=== PATIENT | male | born 1960 | race Caucasian/White ===

== ENCOUNTER 2019-07-13 05:05 | Emergency (ER) | payer BC ==
[2019-07-13 06:04] LABS: Absolute Lymphocytes (CBC) 4.8 K/uL (0.7-4.9); Basophils % 1.2 % (0-1.3); Hematocrit 45.1 % (39.6-49.0); Lymphocytes % 41.9 % (15.3-44.8); MPV 8.5 fL (7.6-11.3); RBC Red Blood Cell Count 5.47 M/uL (4.33-5.43)
[2019-07-13 06:07] LABS: BUN Blood Urea Nitrogen 16 mg/dL (7-18); Bicarbonate 31 mmol/L (21-32); Glucose Level 112 mg/dL (74-106); Potassium 3.7 mmol/L (3.5-5.1); Protime INR 1.01; Sodium Level 136 mmol/L (136-145)
--- NOTE | 2019-07-13 06:16 | EDPHYS ---
Physician Documentation [facility] Name: Michael Mccray Age: 58 yrs Sex: Male : 1960 Arrival Date: 07/13/2019 Time: 05:08 Bed 6 Private MD: ED Physician Raciel Villalta HPI: 07/13 05:16 This 58 yrs old Male presents to ER via Unassigned with complaints of Facial rn Droop. 05:16 The patient presents to the emergency department with weakness of the left side of the rn face, that is moderate. Onset: The symptoms/episode began/occurred yesterday. Severity of symptoms: At their worst the symptoms were moderate in the emergency department the symptoms are unchanged. The patient has not experienced similar symptoms in the past. Reports noticed face felt funny yesterday around 2PM, went to work and noticed liquid coming out of left side of mouth and left side of face was drooping. NO trauma. No other focal neurological complaints. . Historical: - Allergies: 05:22 PENICILLINS; bb 05:22 Erythromycin; bb - Immunization history:: Adult Immunizations up to date. - Social history:: Smoking status: Patient uses tobacco products, vapes. - Family history:: not pertinent. - Ebola Screening: : No symptoms or risks identified at this time. - Hospitalizations: : No recent hospitalization is reported. ROS: 05:16 Constitutional: Negative for fever, chills, and weight loss, Eyes: Negative for injury, rn pain, redness, and discharge, Neck: Negative for injury, pain, and swelling, Cardiovascular: Negative for chest pain, palpitations, and edema, Respiratory: Negative for shortness of breath, cough, wheezing, and pleuritic chest pain, Abdomen/GI: Negative for abdominal pain, nausea, vomiting, diarrhea, and constipation, MS/Extremity: Negative for injury and deformity, Skin: Negative for injury, rash, and discoloration, Neuro: Negative for headache, numbness, tingling, and seizure. Exam: 05:16 Constitutional: This is a well developed, well nourished patient who is awake, alert, rn and in no acute distress. Head/Face: Normocephalic, atraumatic. Eyes: Pupils equal round and reactive to light, extra-ocular motions intact. ENT: Mucous membranes moist. Neck: Trachea midline, no thyromegaly or masses palpated, and no cervical lymphadenopathy. Supple, full range of motion without nuchal rigidity, or vertebral point tenderness. No Meningismus. Cardiovascular: Regular rate and rhythm. No pulse deficits. Respiratory: Lungs have equal breath sounds bilaterally, clear to auscultation. No increased work of breathing, no retractions or nasal flaring. Abdomen/GI: Soft, non-tender MS/ Extremity: Pulses equal, no cyanosis. Neurovascular intact. Full, normal range of motion. Equal circumference. Neuro: Awake and alert, GCS 15, oriented to person, place, time, and situation. Motor strength 5/5 in all extremities. Sensory grossly intact. Cerebellar exam normal. + moderate left upper and lower facial weakness. Vital Signs: 05:22 BP 149 / 95; Pulse 82; Resp 16 S; Pulse Ox 98% on R/A; Weight 135.62 kg (R); Height 5 bb ft. 10 in. (177.80 cm) (R); Pain 0/10; 05:22 Temp 98.1; rr5 06:00 BP 124 / 74; Pulse 80; Resp 18; Pulse Ox 98% ; rr5 06:30 BP 124 / 77; Pulse 66; Resp 16; Temp 98; Pulse Ox 98% ; Pain 0/10; rr5 05:22 Body Mass Index 42.90 (135.62 kg, 177.80 cm) bb NIH Stroke Scale Scores: 05:05 NIHSS Score: 1 rr5 MDM: 05:10 Patient medically screened. rn 05:41 Data reviewed: vital signs, nurses notes, radiologic studies, CT scan. Counseling: I rn had a detailed discussion with the patient and/or guardian regarding: the historical points, exam findings, and any diagnostic results supporting the discharge/admit diagnosis, radiology results, the need for outpatient follow up, to return to the emergency department if symptoms worsen or persist or if there are any questions or concerns that arise at home. Special discussion: I discussed with the patient/guardian in detail that at this point there is no indication for admission to the hospital. It is understood, however, that if the symptoms persist or worsen the patient needs to return immediately for re-evaluation. Based on the history and exam findings, there is no indication for further emergent testing or inpatient evaluation. I discussed with the patient/guardian the need to see the neurologist for further evaluation of the symptoms. I discussed with the patient/guardian the need to see the primary care provider for further evaluation of the symptoms. ED course: Symptoms and exam consistent with bells palsy, will dc home with steroids and antivirals and pcp and neuro f/u. CT head negative. Explained to patient need for eye drops and protecting eye when sleeping. . 06:14 ED course: No indication for TPA given consistent with bells palsy, neg ct head, and rn symptoms had begun yesterday afternoon.. 07/13 05:16 Order name: Basic Metabolic Panel; Complete Time: 06:14 rn 07/13 05:16 Order name: CBC with Diff; Complete Time: 06: rn 07/13 05:16 Order name: Protime (+inr); Complete Time: 06: rn 07/13 05:16 Order name: Ptt, Activated; Complete Time: 06: rn 07/13 05:16 Order name: CT Stroke Brain w/o Contrast rn 07/13 05:16 Order name: EKG; Complete Time: 05: rn 07/13 05:16 Order name: Accucheck; Complete Time: rn 07/13 05:16 Order name: Cardiac monitoring; Complete Time: rn 07/13 05:16 Order name: EKG - Nurse/Tech; Complete Time: rn 07/13 05:16 Order name: IV Saline Lock; Complete Time: rn 07/13 05:16 Order name: Labs collected and sent; Complete Time: 05: rn 07/13 05:16 Order name: NPO; Complete Time: 07/13 05:16 Order name: O2 Per Protocol; Complete Time: 07/13 05:16 Order name: O2 Sat Monitoring; Complete Time: : rn 07/13 05:16 Order name: Stroke Swallow Screen; Complete Time: 05: rn Administered Medications: No medications were administered Point of Care Testing: Blood Glucose: 05:22 Blood Glucose: 108 mg/dL; bb Ranges: Critical Glucose Levels:Adult <50 mg/dl or >400 mg/dl <40 mg/dl or >180 mg/dl Disposition: 07/13/19 06:15 Discharged to Home. Impression: Sidhu's palsy. - Condition is Stable. - Discharge Instructions: Sidhu Palsy, Adult. - Prescriptions for valacyclovir 500 mg Oral tablet - take 1 tablet by ORAL route 2 times per day for 5 days; 10 tablet. Prednisone 20 mg Oral Tablet - take 1 tablet by ORAL route as instructed for 10 days Take 3 tablets orally once daily for 5 days, then take 2 tablets orally once daily for 3 days, then take 1 tablet orally once daily for 2 days, total of 10 days.; 23 tablet. - Medication Reconciliation Form, Thank You Letter, Antibiotic Education, Prescription Opioid Use form. - Follow up: Clement Smith; When: 5 - 6 days; Reason: Recheck today's complaints, Re-evaluation by your physician. - Problem is new. - Symptoms are unchanged. NIH Stroke Scale - NIH Stroke Score Date: 07/13/2019 Time: 05:05 Total Score = 1 1a. Level of Consciousness (LOC) - 0(Alert) 1b. Level of Consciousness (LOC) (Year \T\ Age) - 0(Both) 1c. LOC Commands (Open \T\ Closes Eyes/Global Chief Creative Officer) - 0(Both) 2. Best Gaze (Lateral Gaze Paresis) - 0(Normal) 3. Visual Field Loss - 0(No visual loss) 4. Facial Palsy - 1(Minor Paralysis) 5a. Left Arm: Motor (10-second hold) - 0(No drift) 5b. Right Arm: Motor (10-second hold) - 0(No drift) 6a. Left Leg: Motor (5-second hold - always test supine) - 0(No drift) 6b. Right Leg: Motor (5-second hold - always test supine) - 0(No drift) 7. Limb Ataxia (finger/nose \T\ heel/ayers - test with eyes open) - 0(Absent) 8. Sensory Loss (pinprick arms/legs/face) - 0(Normal) 9. Best Language: Aphasia (description/naming/reading) - 0(No aphasia) 10. Dysarthria (speech clarity - read or repeat words) - 0(Normal) 11. Extinction and Inattention (visual/tactile/auditory/spatial/personal) - 0(No abnormality) Initials: rr5 Signatures: Dispatcher [employer] Jessica Fontenot RN RN Raciel Segura MD MD rn Roque, Raymond, RN RN rr5 Corrections: (The following items were deleted from the chart) 06:38 06:15 07/13/2019 06:15 Discharged to Home. Impression: Sidhu's palsy. Condition rr5 is Stable. Discharge Instructions: Sidhu Palsy, Adult. Prescriptions for valacyclovir 500 mg Oral tablet - take 1 tablet by ORAL route 2 times per day for 5 days; 10 tablet, Prednisone 20 mg Oral Tablet - take 1 tablet by ORAL route as instructed for 10 days Take 3 tablets orally once daily for 5 days, then take 2 tablets orally once daily for 3 days, then take 1 tablet orally once daily for 2 days, total of 10 days.; 23 tablet. and Forms are Medication Reconciliation Form, Thank You Letter, Antibiotic Education, Prescription Opioid Use. Follow up: Clement Smith; When: 5 - 6 days; Reason: Recheck today's complaints, Re-evaluation by your physician. Problem is new. Symptoms are unchanged. rn
--- NOTE | 2019-07-13 06:16 | ER ---
Nurse's Notes [facility] Name: Michael Mccray Age: 58 yrs Sex: Male : 1960 Arrival Date: 07/13/2019 Time: 05:08 Bed 6 Private MD: Diagnosis: Sidhu's palsy Presentation: 07/13 05:10 Presenting complaint: Patient states: he was told by his coworkers yesterday that he bb had a left sided facial droop pt denies any other complaints. Transition of care: patient was not received from another setting of care. An acute neurological deficit is present. The charge nurse has been notified. The patient has been moved to a treatment area. Onset of symptoms was July 12, 2019. Risk Assessment: Do you want to hurt yourself or someone else? Patient reports no desire to harm self or others. Initial Sepsis Screen: Does the patient meet any 2 criteria? No. Patient's initial sepsis screen is negative. Does the patient have a suspected source of infection? No. Patient's initial sepsis screen is negative. Care prior to arrival: None. 05:10 Method Of Arrival: Ambulatory bb 05:10 Acuity: EDUARDO 2 bb 05:10 Onset of symptoms was July 12, 2019 at 14:00. rr5 05:10 An acute neurological deficit is present. The charge nurse has been notified. The rr5 patient has been moved to a treatment area. Pre-hospital glucose is not applicable to this patient. Triage Assessment: 05:22 The onset of the patients symptoms was July 12, 2019 at 14:00. bb Stroke Activation: Symptom onset > 6 hours Physician: Stroke Attending; Name: ; Notified At: ; Arrived At: Physician: Chief Stroke Resident; Name: ; Notified At: ; Arrived At: Physician: Stroke Resident; Name: ; Notified At: ; Arrived At: Physician: ED Attending; Name: Ambar; Notified At: 05:16; Arrived At: 05:16 Physician: ED Resident; Name: ; Notified At: ; Arrived At: Historical: - Allergies: 05:22 PENICILLINS; bb 05:22 Erythromycin; bb - Immunization history:: Adult Immunizations up to date. - Social history:: Smoking status: Patient uses tobacco products, vapes. - Family history:: not pertinent. - Ebola Screening: : No symptoms or risks identified at this time. - Hospitalizations: : No recent hospitalization is reported. Screenin:10 Abuse screen: Denies threats or abuse. Denies injuries from another. Nutritional rr5 screening: No deficits noted. Tuberculosis screening: No symptoms or risk factors identified. Fall Risk IV access (20 points). Total Verma Fall Scale indicates No Risk (0-24 pts). 05:10 VAN Screening: Arm Drift: Patient shows no arm weakness. Patient is VAN negative. rr5 05:39 Patient has been NPO before screening. The patient is alert, able to follow commands. rr5 The patient does not exhibit slurred or garbled speech The patient is not exhibiting difficulty speaking. The patient does not exhibit difficulty understanding words. The patient is able to swallow own secretions with no drooling or need for suction. Patient tolerated one teaspoon of water. No drooling, immediate coughing, gurgling, or clearing of the throat was noted. The patient tolerated 90mL of water. No drooling, immediate coughing, gurgling, or clearing of the throat was noted. The patient passed the bedside swallow screening. Oral medications may be given as ordered. Contact Physician for further diet orders. Provider notified of bedside swallow screening results: Raciel Villalta MD. Assessment: 05:05 General: Appears in no apparent distress. comfortable, Behavior is calm, cooperative, rr5 appropriate for age. 05:05 Pain: Denies pain. 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 Full function Gait is steady, Facial droop on left, Pupils are PERRLA, Intact Reports facial droop. Cardiovascular: Capillary refill < 3 seconds Patient's skin is warm and dry. Respiratory: Airway is patent Respiratory effort is even, unlabored, Respiratory pattern is regular, symmetrical. GI: No signs and/or symptoms were reported involving the gastrointestinal system. : No signs and/or symptoms were reported regarding the genitourinary system. EENT: left facial droop. Reports left facial droop started 1400 (07/12/19). Derm: Skin is intact, Skin temperature is warm. Musculoskeletal: Circulation, motion, and sensation intact. Capillary refill < 3 seconds. 05:05 T-PA (Activase) Screening: Contraindications: Other: out of window symptoms started rr5 07/12/19 \T\ 1400H. 05:10 VAN Scoring: Arm Drift: Patients demonstrates NO arm weakness. Patient is VAN Negative. rr5 05:39 Patient has been NPO before screening. The patient is alert, and able to follow rr5 commands. The patient does not exhibit slurred or garbled speech. The patient is not exhibiting difficulty speaking. The patient does not exhibit difficulty understanding words. The patient is able to swallow own secretions with no drooling or need for suction. Patient tolerated one teaspoon of water. No drooling, immediate coughing, gurgling, or clearing of the throat was noted. The patient tolerated 90mL of water. No drooling, immediate coughing, gurgling, or clearing of the throat was noted. The patient passed the bedside swallow screening. Oral medications may be given as ordered. Contact Physician for further diet orders. Provider notified of bedside swallow screening results: Raciel Villalta MD. 06:00 Reassessment: Patient appears in no apparent distress at this time. Patient and/or rr5 family updated on plan of care and expected duration. Pain level reassessed. Patient is alert, oriented x 3, equal unlabored respirations, skin warm/dry/pink. no complaints made. watching TV comfortably. 06:34 Reassessment: Patient appears in no apparent distress at this time. Patient is alert, rr5 oriented x 3, equal unlabored respirations, skin warm/dry/pink. discharge instruction given and explained without complaints made,verbalized understanding. Patient states feeling better. Vital Signs: 05:22 BP 149 / 95; Pulse 82; Resp 16 S; Pulse Ox 98% on R/A; Weight 135.62 kg (R); Height 5 bb ft. 10 in. (177.80 cm) (R); Pain 0/10; 05:22 Temp 98.1; rr5 06:00 BP 124 / 74; Pulse 80; Resp 18; Pulse Ox 98% ; rr5 06:30 BP 124 / 77; Pulse 66; Resp 16; Temp 98; Pulse Ox 98% ; Pain 0/10; rr5 05:22 Body Mass Index 42.90 (135.62 kg, 177.80 cm) bb NIH Stroke Scale Scores: 05:05 NIHSS Score: 1 rr5 ED Course: 05:00 Patient has correct armband on for positive identification. Placed in gown. Bed in low rr5 position. Call light in reach. Side rails up X2. contractor buyer on. Pulse ox on. NIBP on. 05:08 Patient arrived in ED. ds1 05:10 Raciel Villalta MD is Attending Physician. rn 05:16 Arm band placed on Patient placed in an exam room, on a stretcher, on pulse oximetry. bb 05:22 Triage completed. bb 05:30 Inserted saline lock: 20 gauge in right antecubital area, using aseptic technique. rr5 Blood collected. 05:30 Patient maintains SpO2 saturation greater than 95% on room air. rr5 05:31 CT Stroke Brain w/o Contrast In Process Unspecified. EDMS 05:37 Jean-Paul Livingston, MEHRAN is Primary Nurse. rr5 06:15 Clement Smith MD is Referral Physician. rn 06:35 No provider procedures requiring assistance completed. IV discontinued, intact, rr5 bleeding controlled, No redness/swelling at site. Pressure dressing applied. Administered Medications: No medications were administered Point of Care Testing: Blood Glucose: 05:22 Blood Glucose: 108 mg/dL; bb Ranges: Outcome: 06:15 Discharge ordered by . rn 06:35 Discharged to home ambulatory. rr5 06:35 Condition: stable 06:35 Discharge instructions given to patient, Instructed on discharge instructions, follow up and referral plans. medication usage, Demonstrated understanding of instructions, follow-up care, medications, Prescriptions given X 2. 06:38 Patient left the ED. rr5 NIH Stroke Scale - NIH Stroke Score Date: 07/13/2019 Time: 05:05 Total Score = 1 1a. Level of Consciousness (LOC) - 0(Alert) 1b. Level of Consciousness (LOC) (Year \T\ Age) - 0(Both) 1c. LOC Commands (Open \T\ Closes Eyes/Grading Clerk) - 0(Both) 2. Best Gaze (Lateral Gaze Paresis) - 0(Normal) 3. Visual Field Loss - 0(No visual loss) 4. Facial Palsy - 1(Minor Paralysis) 5a. Left Arm: Motor (10-second hold) - 0(No drift) 5b. Right Arm: Motor (10-second hold) - 0(No drift) 6a. Left Leg: Motor (5-second hold - always test supine) - 0(No drift) 6b. Right Leg: Motor (5-second hold - always test supine) - 0(No drift) 7. Limb Ataxia (finger/nose \T\ heel/ayers - test with eyes open) - 0(Absent) 8. Sensory Loss (pinprick arms/legs/face) - 0(Normal) 9. Best Language: Aphasia (description/naming/reading) - 0(No aphasia) 10. Dysarthria (speech clarity - read or repeat words) - 0(Normal) 11. Extinction and Inattention (visual/tactile/auditory/spatial/personal) - 0(No abnormality) Initials: rr5 Signatures: Dispatcher [employer] [facility] CatAnupama jiménez ds1 Jessica Luis RN RN Raciel Segura MD MD rn Roque, Raymond, RN RN rr5 Corrections: (The following items were deleted from the chart) 05:41 05:05 VAN Scoring: Arm Drift: Patients demonstrates NO arm weakness. Patient is rr5 VAN Negative. rr5
[2019-07-13 06:44] VITALS: O2SAT 98
[2019-07-13 06:47] VITALS: BP 124/77; TEMP 98
--- NOTE | 2019-07-13 08:27 | EKG ---
Test Date: 2019-07-13 Test Time: 05:34:24 Hvac Maintenance Technician: RR MEASUREMENT RESULTS: Intervals: Rate: 70 LA: 168 QRSD: 108 QT: 426 QTc: 460 Protem: P: 69 LA: 168 QRS: 24 T: 36 INTERPRETIVE STATEMENTS: Normal sinus rhythm Normal ECG Compared to ECG 07/31/1997 21:54:00 No significant changes Electronically Signed On 07-13-19 08:26:42 CDT by Yung Mcmahon
--- NOTE | 2019-07-13 09:52 | RAD REPORT ---
EXAM DESCRIPTION: CT - Ct Stroke Brain Wo Cont - 07/13/2019 5:43 am ADDENDUM #1 THIS REPORT CONTAINS FINDINGS THAT MAY BE CRITICAL TO PATIENT CARE: The findings were verbally discussed via telephone conference with Dr. Raciel Villalta by Dr. Lety Flores on 07/13 5:49 AM CDT .The results were acknowledged and understood. Electronically signed by: Kasey Flores MD 07/13/2019 5:49 AM CDT End of Addendum EXAM DESCRIPTION: CT Head Without Intravenous Contrast CLINICAL HISTORY: The patient is 58 years old and is Male; left facial droop TECHNIQUE: Axial computed tomography images of the head/brain without intravenous contrast. Sagitt al and coronal reformatted images were created and reviewed. This CT exam was performed using one o r more of the following dose reduction techniques: automated exposure control, adjustment of the mA and/or kV according to patient size, and/or use of iterative reconstruction technique. COMPARISON: No relevant prior studies available. FINDINGS: BRAIN: Unremarkable. The hamlin-white matter differentiation is preserved . No hemorrhag e. No significant white matter disease. No edema. No extra-axial fluid collections. VENTRICLES: Unremarkable. No ventriculomegaly. BONES/JOINTS: No acute fracture. SOFT TISSUES: Unremarkable. SINUSES: Unremarkable as visualized. No acute sinusitis. MASTOID AIR CELLS: Unremarkable as visualized. No mastoid effusion. ORBITS: Unremarkable as visualized. IMPRESSION: No acute intracranial findings. Electronically signed by: Kasey Flores MD 07/13/2019 5:38 AM CDT Due to temporary technical issues with the PACS/Fluency reporting system, reports are being signed by the in house radiologist as a courtesy to ensure prompt reporting. The interpreting radiologist is f ully responsible for the content of the report.
== END 2019-07-13 06:38 | disposition home or self-care (01) ==
LOC: ER 05:05
DX: G51.0 Bell's palsy (principal); Z88.0 Allergy status to penicillin; Z88.3 Allergy status to other anti-infective agents; Z72.0 Tobacco use
CPT/HCPCS: 36415; 70450; 80048; 82962; 85025; 85610; 85730; 93005; 99285